=== PATIENT | male | born 1935 | race African-American/Black ===

== ENCOUNTER 2018-12-10 16:29 | Emergency (ER) | payer MEDICARE, BC ==
[~2018-12-10] VITALS: Ht 172.7 cm; Wt 76.0 kg
[2018-12-10 17:00] VITALS: BP 98/54
== END 2018-12-10 21:58 | disposition left against medical advice (07) ==
LOC: ER 16:29
DX: Z53.21 Procedure and treatment not carried out due to patient leaving prior to being seen by health care provider (principal)